=== PATIENT | female | born 2000 | race Caucasian/White ===

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

== ENCOUNTER 2023-12-15 01:07 | Emergency (ER) | payer OTHER ==
[2023-12-15 01:19] VITALS: BP 117/79; RESP 18; TEMP 98.9; BMI 19.8
[2023-12-15] MEDS ORDERED: ACETAMINOPHEN 500 MG TABLET (FP) ONE (01:42)
[2023-12-15] MEDS: ACETAMINOPHEN 325 MG TABLET (FP) PO ONE (01:44)
[2023-12-15 02:11] LABS: THROAT:GRP A STREP NOT DETECTED (NOTDETECTED)
[2023-12-15 02:21] VITALS: PULSE 90
== END 2023-12-15 02:21 | disposition home or self-care (01) ==
LOC: JERFT 01:07 → JER 01:07 → JERFT 02:21
DX: J02.9 Acute pharyngitis, unspecified (principal); M79.10 Myalgia, unspecified site; R50.9 Fever, unspecified; J06.9 Acute upper respiratory infection, unspecified; Z20.822 Contact with and (suspected) exposure to COVID-19
CPT/HCPCS: 0241U-QW; 87651; 99283-25